=== PATIENT | female | born 1990 | race Two or more races ===

== ENCOUNTER → 2025-08-10 | Outpatient (CLI) | payer BC, SELFPAY ==
--- NOTE | 2025-08-10 15:00 | XR_ITS ---
Examination: MRI left ankle without contrast Date and time of exam: August 10, 2025, 1517 hours INDICATIONS: Left ankle joint swelling clicking and instability 3 years Technique: Multiple MRI axial and sagittal sections lumbar spine. Sagittal T2-weighted images, TR 3500, TE 118 T1 weighted transverse sections, TR 688 T8.5, T2-weighted sagittal sections T1 weighted sagittal sections TR 621, TE 30 T2 axial sections, TR 4, 190, TE 84. Findings: Intact Achilles tendon No plantar fasciitis No occult fracture bone contusion or marrow edema Negative for avascular necrosis Dome of the talus intact No osteochondritis dissecans Negative for sinus Tarsi syndrome Anterior posterior inferior tibiofibular ligaments intact Partial tear of the anterior talofibular ligament Flexor tendons intact with mild tendinitis posterior tibial flexor digitorum tendons Extensor tendons intact IMPRESSION: No occult fracture or bone contusion or marrow edema Partial tear of the anterior talofibular ligament Tendinitis posterior tibial flexor digitorum tendons
== END | disposition home or self-care (01) ==
LOC: SMRI 14:50
PROVIDERS: PCP Nurse Practitioner Family; Referring Provider Nurse Practitioner Family; Visit Provider Nurse Practitioner Family
DX: S93.492A Sprain of other ligament of left ankle, initial encounter (principal); X58.XXXA Exposure to other specified factors, initial encounter; M76.822 Posterior tibial tendinitis, left leg
CPT/HCPCS: 73721